=== PATIENT | male | born 1945 | race Caucasian/White ===

== ENCOUNTER → 2018-03-13 | Outpatient (CLI) | payer MEDICARE, OTHER | LOC: COL.RAD 13:06 | DX: M51.36 Other intervertebral disc degeneration, lumbar region (principal) ==

== ENCOUNTER 2024-05-07 12:44 | Emergency (ER) | payer OTHER ==
[~2024-05-07] VITALS: Ht 190.5 cm; Wt 125.5 kg
[2024-05-07 13:00] VITALS: TEMP 97.9
[2024-05-07] MEDS ORDERED: Ondansetron 4 MG/2 ML VIAL IV ONE (13:30)
[2024-05-07] MEDS ORDERED: Morphine 4 MG/ML VIAL IV ONE (13:30)
[2024-05-07] MEDS ORDERED: NS 1,000 ML IV ONE (13:30)
[2024-05-07 13:54] LABS: BASO % 0.5 % (0.0-2.0); EOS # 0.3 K/mm3 (0.0-0.7); EOS % 3.5 % (0.0-4.0); GRAN # 4.6 K/mm3 (1.4-6.5); GRAN % 59.8 % (42.2-75.2); HEMATOCRIT 39.4 % (42.0-52.0); HEMOGLOBIN 12.7 g/dl (13.5-18.0); LYMPH % 25.4 % (20.0-51.0); MEAN CELL VOLUME 104 fl (80.0-100.0); MEAN CORPUSCULAR HEMOGLOBIN 33 pg (27-31); MEAN CORPUSCULAR HGB CONC 32 g/dl (33.0-37.0); MEAN PLATELET VOLUME 10.1 fl (7.4-10.4); MONO # 0.8 K/mm3 (0.1-0.6); MONO % 10.2 % (1.7-9.3); PLATELET COUNT 238 K/mm3 (130-400); REDCELL DISTRIBUTION WIDTH-CV 13.1 % (11.5-14.5)
[2024-05-07 14:14] LABS: URINE APPEARANCE CLEAR (CLEAR/HAZY); URINE BLOOD NEGATIVE (NEGATIVE); URINE COLOR YELLOW (YELLOW); URINE GLUCOSE NEGATIVE (NEGATIVE); URINE KETONE TRACE (NEGATIVE); URINE NITRATE NEGATIVE (NEGATIVE); URINE PROTEIN(semi-quant) NEGATIVE (NEGATIVE); URINE UROBILINOGEN 0.2 E.U/dL (0.2-1.0)
[2024-05-07 14:15] LABS: ALBUMIN 3.4 g/dL (3.4-4.8); ALKALINE PHOSPHATASE 55 U/L (40-150); ANION GAP 10 mmol/L (7-16); AST,SGOT 12 U/L (5-34); BILIRUBIN,TOTAL 0.4 mg/dL (0.2-1.2); BLOOD UREA NITROGEN 30 mg/dL (8-26); CALCIUM 10.2 mg/dL (8.4-10.2); CHLORIDE 110 mEq/L (98-107); CREATININE, serum 1.28 mg/dL (0.72-1.25); GLUCOSE 70 mg/dL (70-99); POTASSIUM 4.7 mEq/L (3.5-4.5); SODIUM 143 mEq/L (136-145); TOTAL PROTEIN 6.3 g/dl (6.2-8.1)
[2024-05-07 14:18] LABS: ALANINE AMINOTRANSFERASE < 6 U/L (0-55)
[2024-05-07 14:20] LABS: COLLECTION METHOD CLEAN CATCH
[2024-05-07] MEDS ORDERED: Iohexol 300 - 100 ML VIAL IV ONE (14:26)
[2024-05-07] MEDS ORDERED: NS 100 ML IV SCH (14:31)
[2024-05-07] MEDS ORDERED: PERCOCET 325 MG1 TA2 PO (15:20)
[2024-05-07 15:38] VITALS: BP 135/58; PULSE 67
[2024-05-08 11:20] LABS: CLOSTRIDIUM DIFF A/B NEG
== END 2024-05-07 15:38 | disposition home or self-care (01) ==
LOC: COL.ER 12:44
PROVIDERS: Personal Emergency Response Attendant
DX: M54.50 Low back pain, unspecified (principal); R19.7 Diarrhea, unspecified
CPT/HCPCS: J2270; J2405; J7030; Q9967